=== PATIENT | female | born 1940 | race African-American/Black ===

== ENCOUNTER 2018-02-08 19:51 | Emergency (ER) | payer MEDICARE ==
[~2018-02-08] VITALS: Ht 157.5 cm; Wt 64.9 kg
[2018-02-08] MEDS ORDERED: LEVOTHYROXINE75 MCG ORAL (20:03)
[2018-02-08 20:05] VITALS: BP 142/59
[2018-02-08] MEDS ORDERED: Isovue-300 100ml vial INJ PRN (20:30)
--- NOTE | 2018-02-08 20:50 | Emergency Room Report ---
History of Present Illness General Chief Complaint: Nausea, Vomiting, and Diarrhea Source: Patient (ALMA DELIAGILBERTO Kolb) Present Illness HPI Patient is a 78-year-old female who is complaining of diffuse upper abdominal pain with associated belching and intermittent episodes of diarrhea for the last 48 hours. She attributed her symptoms to food she ate 2 days ago. No one else ate same food. Patient also states a history of breast cancer that is returned after remission 30 years ago. Patient states she had a recent PET scan showing a new tumor behind her "breast plate". (GILBERTO FLANNERY) Allergies: Coded Allergies: MORPHINE (Verified Allergy, Unknown, 02/08/18) Patient History Past Medical History: see triage record Past Surgical History: none Pertinent Family History: none Social History: Denies: smoking, alcohol use, drug use Last Menstrual Period: N/A (GILBERTO FLANNERY) Nursing Documentation-[facility] Hx Cancer: Yes - Breast cancer (GILBERTO FLANNERY) Review of Systems Constitutional: Denies: no symptoms, see HPI, chills, sweats, fever, malaise, weakness, other Eye: Denies: no symptoms, see HPI, eye pain, blurred vision, tearing, double vision, nose pain, nose congestion, acuity changes, discharge, other ENT: Denies: no symptoms, see HPI, ear pain, ear discharge, nose pain, nose congestion, throat pain, throat swelling, mouth pain, hearing loss, nasal discharge, other Respiratory: Denies: no symptoms, see HPI, cough, orthopnea, shortness of breath, stridor, wheezing, VASQUEZ, sputum, other Cardiovascular: Denies: no symptoms, see HPI, chest pain, edema, palpitations, syncope, PND, other Gastrointestinal: Reports: see HPI Genitourinary: Denies: no symptoms, see HPI, discharge, dysuria, frequency, hematuria, pain, retention, incontinence, urgency, vag bleed/dc, other Musculoskeletal: Denies: no symptoms, see HPI, back pain, gout, joint pain, joint swelling, muscle pain, muscle stiffness, other Skin: Denies: no symptoms, see HPI, rash, change in color, change in hair/nails , dryness, lesions, other Neurological: Denies: no symptoms, see HPI, headache, numbness, paresthesia, seizure, tingling, tremors, focal weakness, syncope, dizziness, other Allergic: Denies: no symptoms, see HPI, urticaria, hay fever, other (GILBERTO FLANNERY) Physical Exam Vital Signs Date Time Temp Pulse Resp B/P (MAP) Pulse Ox O2 Delivery O2 Flow Rate FiO2 02/08/18 19:55 98.8 90 16 168/89 95 Room Air 98.8 Sp02 EP Interpretation: reviewed, normal General Appearance: no apparent distress, alert, GCS 15, non-toxic Head: normocephalic, atraumatic Eyes: bilateral eye normal inspection, bilateral eye PERRL ENT: hearing grossly normal, normal pharynx, no angioedema, normal voice Neck: full range of motion, supple/symm/no masses Respiratory: chest non-tender, lungs clear, normal breath sounds, speaking full sentences Cardiovascular #1: regular rate, rhythm, no edema Cardiovascular #2: 2+ carotid (R), 2+ carotid (L), 2+ radial (R), 2+ radial (L) , 2+ dorsalis pedis (R), 2+ dorsalis pedis (L) Gastrointestinal: normal bowel sounds, non tender, soft, non-distended, no guarding, no rebound Rectal: deferred Genitourinary: normal inspection, no CVA tenderness Musculoskeletal: back normal, gait/station normal, normal range of motion, non- tender, calf tenderness Neurologic: alert, oriented x3, responsive, motor strength/tone normal, sensory intact, speech normal Psychiatric: judgement/insight normal, memory normal, mood/affect normal, no suicidal/homicidal ideation Reflexes: 3+ bicep (R), 3+ bicep (L), 3+ tricep (R), 3+ tricep (L), 3+ knee (R) , 3+ knee (L) Skin: normal color, no rash, warm/dry, well hydrated Lymphatic: no adenopathy (GILBERTO FLANNERY) Medical Decision Making Diagnostic Impression: Primary Impression: Nausea & vomiting Qualified Codes: R11.2 - Nausea with vomiting, unspecified ER Course Please see above note from Dr. Flannery. Signed out to me for review of CT and repeat evaluation. Patient post CT. See results below. Improved, but still with some nausea and belching. Zofran repeated and mylanta given with improvement. Patient stable for outpatient observation and treatment. (Cabrera Morales M.D.) CT/MRI/US Diagnostic Results CT/MRI/US Diagnostic Results : Imaging Test Ordered: abd pelvis Impression IMPRESSION: * Diffuse fecal contents of small bowel loops, which are not abnormally dilated. Findings may be related to slow transit, possibly a cause for pain. * Large colonic stool burden. Correlate for constipation. * Pancreatic ductal dilatation in the body and head. No ductal dilatation and pancreatic tail. Findings may be sequela of chronic pancreatitis in the appropriate setting. Additional etiologies not excluded. Recommend further evaluation with MRI/MRCP of the abdomen without and with intravenous contrast on a routine basis. * Low-attenuation subcentimeter lesions in the liver possibly simple cysts versus biliary hamartomas. * Multiple small low-attenuation lesions in the spleen, possibly cysts or hemangiomas. (Cabrera Morales M.D.) Last Vital Signs Date Time Temp Pulse Resp B/P (MAP) Pulse Ox O2 Delivery O2 Flow Rate FiO2 02/08/18 19:55 98.8 90 16 168/89 95 Room Air 98.8 (GILBERTO FLANNERY) Last Vital Signs Date Time Temp Pulse Resp B/P (MAP) Pulse Ox O2 Delivery O2 Flow Rate FiO2 02/09/18 00:46 98.8 69 18 138/59 100 Room Air 98.8 Status: improved (Cabrera oMrales M.D.) Disposition: HOME, SELF-CARE Condition: Improved Scripts Tramadol Hcl* (ULTRAM*) 50 Mg Tablet 50 MG ORAL Q6H PRN for For Pain, #6 TAB 0 Refills Prov: Cabrera Morales M.D. 02/09/18 Famotidine (PEPCID AC) 20 Mg Tablet 20 MG PO DAILY, #20 TAB Prov: Cabrera Morales M.D. 02/09/18 Ondansetron Odt* (ZOFRAN ODT*) 4 Mg Tab.rapdis 4 MG BC EVERY 8 HOURS, #6 TAB 0 Refills Prov: Cabrera Morales M.D. 02/09/18 GILBERTO FLANNERY Feb 08, 2018 20:50 Cabrera Morales M.D. Feb 09, 2018 00:10
[2018-02-08 21:03] LABS: BILIRUBIN, URINE 2+ (NEGATIVE); COLOR,URINE AMBER; GLUCOSE, URINE (UA) NEGATIVE (NEGATIVE); KETONES,URINE NEGATIVE (NEGATIVE); LEUKOCYTE ESTERASE ,URINE 1+ (NEGATIVE); NITRITE,URINE NEGATIVE (NEGATIVE); PH,URINE 5 (4.5-8.0); PROTEIN,URINE 1+ (NEGATIVE); UROBILINOGEN,URINE NORMAL MG/DL (0.0-1.0)
[2018-02-08 21:04] LABS: BASOPHILS % (AUTO) 0.8 % (0.0-2.0); EOSINOPHILS % (AUTO) 1.9 % (0.0-3.0); HEMATOCRIT 32.3 % (37.0-47.0); HEMOGLOBIN 9.7 G/DL (12.0-16.0); LYMPHOCYTES % (AUTO) 25.5 % (20.0-45.0); MEAN CORPUSCULAR VOLUME 71 FL (80-99); MONOCYTES % (AUTO) 8.3 % (1.0-10.0); NEUTROPHILS % (AUTO) 63.5 % (45.0-75.0); PLATELET COUNT 249 K/UL (150-450); RED BLOOD COUNT 4.53 M/UL (4.20-5.40); RED CELL DISTRIBUTION WIDTH 15.8 % (11.6-14.8); WHITE BLOOD COUNT 7.3 K/UL (4.8-10.8)
[2018-02-08 21:05] LABS: APPEARANCE,URINE SLIGHTLY CLOUDY
[2018-02-08 21:18] LABS: ANION GAP 6 mmol/L (5-15); BLOOD UREA NITROGEN 12 mg/dL (7-18); CALCIUM 9.3 MG/DL (8.5-10.1); CARBON DIOXIDE 27 MMOL/L (21-32); CHLORIDE 105 MMOL/L (98-107); POTASSIUM 3.5 MMOL/L (3.5-5.1); SODIUM 138 MMOL/L (136-145)
[2018-02-08 21:23] LABS: ALANINE AMINOTRANSFERASE 21 U/L (12-78); ALBUMIN 3.5 G/DL (3.4-5.0); ALBUMIN/GLOBULIN RATIO 0.7 (1.0-2.7); ALKALINE PHOSPHATASE 123 U/L (46-116); ASPARTATE AMINO TRANSFERASE 26 U/L (15-37); BILIRUBIN,TOTAL 0.3 MG/DL (0.2-1.0)
[2018-02-08 23:35] VITALS: BP 138/59
[2018-02-09] MEDS ORDERED: ONDANSETRON ODT4 MG BC (00:12)
[2018-02-09] MEDS ORDERED: PEPCID AC20 M2 PO (00:12)
[2018-02-09] MEDS ORDERED: TRAMADOL HCL50 MG ORAL (00:12)
[2018-02-09] MEDS ORDERED: Mylanta II UD 30ml ORAL ONE (00:15)
[2018-02-09 00:45] VITALS: BP 138/64
[2018-02-09 00:46] VITALS: BP 138/59
--- NOTE | 2018-02-09 09:41 | Diagnostic Imaging Report ---
Indication: Abdominal pain Technique: CT of the abdomen and pelvis utilizing automated exposure control with intravenous contrast. Venous scanning performed. Axial, sagittal and coronal reformats presented. CT dose: Total DLP 713.49 mGycm; CTDI vol 15.23 mGy Comparison: None Findings: Dependent atelectasis noted in the lung bases. Well-circumscribed low-attenuation subcentimeter lesions in the liver, largest in the posterior inferior right hepatic lobe too small to fully characterize but possibly simple hepatic cysts or biliary hamartomas. Liver contour is smooth. Gallbladder unremarkable. No biliary ductal dilatation. There is some small subcentimeter low-attenuation lesions in the spleen which may represent cysts or hemangiomas. Spleen is not enlarged. Adrenal glands unremarkable. There is mild pancreatic ductal dilatation the body and head without dilatation within the tail. This may represent sequela of chronic pancreatitis in the proper setting. Additional etiologies not excluded. Recommend further evaluation with MRI of the abdomen. Kidneys enhance symmetrically. There are bilateral extrarenal pelves. No hydronephrosis or urinary tract stones. Bladder is mildly distended but otherwise unremarkable. Uterus is atrophic. No free intraperitoneal air or fluid. No evidence of high-grade small bowel obstruction. There is fecal contents within some small bowel loops which could represent slow transit, possibly cause for patient's pain. Appendix not definitively visualized but there is no focal inflammatory stranding the right lower quadrant to suggest acute appendicitis. There is a large amount of colonic stool. Abdominal aorta normal in caliber. No pathologically enlarged lymphadenopathy appreciated. No acute osseous abnormality. IMPRESSION: * Diffuse fecal contents of small bowel loops, which are not abnormally dilated. Findings may be related to slow transit, possibly a cause for pain. * Large colonic stool burden. Correlate for constipation. * Pancreatic ductal dilatation in the body and head. No ductal dilatation and pancreatic tail. Findings may be sequela of chronic pancreatitis in the appropriate setting. Additional etiologies not excluded. Recommend further evaluation with MRI/MRCP of the abdomen without and with intravenous contrast on a routine basis. * Low-attenuation subcentimeter lesions in the liver possibly simple cysts versus biliary hamartomas. * Multiple small low-attenuation lesions in the spleen, possibly cysts or hemangiomas. This corresponds with the statrad preliminary report. The CT scanner at [facility] is accredited by the [employer] and the scans are performed using protocols designed to limit radiation exposure to as low as reasonably achievable to attain images of sufficient resolution adequate for diagnostic evaluation.
== END 2018-02-09 00:49 | disposition home or self-care (01) ==
LOC: EMR 21:04
DX: R11.2 Nausea with vomiting, unspecified (principal); Z88.6 Allergy status to analgesic agent; Z85.3 Personal history of malignant neoplasm of breast; K76.9 Liver disease, unspecified; D73.89 Other diseases of spleen; R10.9 Unspecified abdominal pain
CPT/HCPCS: 36415; 74177; 80053; 81003; 83690; 85025; 87086; 99284; J2405; Q9967

== ENCOUNTER 2019-06-09 14:36 | Emergency (ER) | payer BC, MEDICARE ==
[~2019-06-09] VITALS: Ht 160 cm; Wt 59.0 kg
[~2019-06-09 14:36] MED LIST: LEVOTHYROXINE75 MCG ORAL; ONDANSETRON ODT4 MG BC; PEPCID AC20 M2 PO; TRAMADOL HCL50 MG ORAL
--- NOTE | 2019-06-09 14:57 | Emergency Room Report ---
History of Present Illness General Chief Complaint: General Complaint Source: Patient, Medical Record, EMS Present Illness HPI Disclaimer: Please note that this report is being documented using DRAGON technology. This can lead to erroneous entry secondary to incorrect interpretation by the dictating instrument. 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 Patient does not know why she is brought to the emergency department today. She cannot recall any discussion about a tunneled catheter or PICC line but does state she has very bad veins. She has had a chronic cough without change in her symptoms. When brought in by EMS she had one episode of emesis and she currently denies abdominal pain. She stated she was nauseous earlier in the day. Denies any dysuria, hematuria, flank pain, chest pain, shortness of breath , sore throat, URI symptoms or other complaints at this time. Denies any recent diarrhea but states that she usually does have loose stools. PMH: Hearing loss, osteoporosis, hypertension, metastatic breast cancer, DVT/PE PSH: Reviewed in chart Allergies: Morphine Social Hx: Denies Allergies: Coded Allergies: MORPHINE (Verified Allergy, Unknown, 02/08/18) Nursing Documentation-PMH Hx Cancer: Yes - Breast cancer Review of Systems All Other Systems: negative except mentioned in HPI Physical Exam Vital Signs Date Time Temp Pulse Resp B/P (MAP) Pulse Ox O2 Delivery O2 Flow Rate FiO2 06/09/19 14:40 98.1 86 18 115/73 (87) 90 Nasal Cannula 2.0 General: Awake and alert, no acute distress, frail-appearing, fatigued HEENT: NC/AT. EOMI. Anicteric sclera. Hearing acuity grossly diminished bilaterally. Dry mucous membranes Cardiovascular: RRR. S1 and S2 normal. No murmur appreciated Resp: Normal work of breathing. No cough, wheezing or crackles appreciated Abdomen: Abdomen is soft, nondistended. Nontender. Ostomy in place without surrounding erythema, edema, no drainage around the device : Arrives with Flores catheter. Clear urine in bag. Skin: Intact. No abrasions, laceration or rash over the exposed skin MSK: Normal tone and bulk. Moving all extremities. No obvious deformity. Compression bandage in the left upper extremity. Neuro: Awake and alert. Mentating appropriately. Medical Decision Making Diagnostic Impression: Primary Impression: PICC (peripherally inserted central catheter) in place ER Course 79-year-old female with a history of breast cancer and DVT presents from [facility] for placement of a PICC versus tunneled catheter who had one episode of vomiting without abdominal pain on arrival. She is well-appearing, no acute distress and has a benign abdominal exam. Will obtain screening labs to check for dehydration and signs of systemic infection. We will also obtain an x-ray of the chest and of the abdomen given her emesis. Discussed with her physician who says a PICC line was placed 2 days ago however is in the wrong position and was pulled. We will replace the PICC Chest X-Ray Diagnostic Results Chest X-Ray Diagnostic Results : # of Views/Limited/Complete: 1 View Indication: Other - Cough EP Interpretation: Yes Interpretation: no consolidation, no pneumothorax, other - Atelectasis versus consolidation of the left lower lung base, surgical clips on the left breast consistent with prior surgeries Impression: Other - Atelectasis at the left lower lung base versus consolidation, surgical clips right breast Electronically Signed by: Electronically signed by Dr. Moe Gauthier Other X-Ray Diagnostic Results Other X-Ray Diagnostic Results : X-Ray ordered: Abdomen # of Views/Limited Vs Complete: 1 View Indication: Other - Vomiting EP Interpretation: Yes Interpretation: nonspecific bowel gas, no sbo Impression: No acute disease Electronically Signed by: Electronically signed by Dr. Moe Gauthier Reevaluation Time: 16:44 Last Vital Signs Date Time Temp Pulse Resp B/P (MAP) Pulse Ox O2 Delivery O2 Flow Rate FiO2 06/09/19 14:40 98.1 86 18 115/73 (87) 90 Nasal Cannula 2.0 Reevaluation Impression Successful placement of PICC line in the left upper extremity, Is working well. Discussed with her PMD who will follow up the atelectasis on chest x-ray though she has had a chronic cough for several months. Abdominal x-ray does not show any evidence of obstruction. Patient is well-appearing has had no further episodes of emesis. In discussion with her doctor he is advised to cancel labs and patient will be followed up by him tomorrow if any further symptoms persist. The patient has no complaints at this time and is resting comfortably with a benign physical exam. Will discharge back to [facility] facility to follow-up with her PMD tomorrow morning. Disposition: ASSISTED LIVING Condition: Stable Moe Gauthier MD Jun 09, 2019 14:57
--- NOTE | 2019-06-09 15:05 | NUR ---
ED Nurse Note: Patient arrived by EMS from [facility] to have her PICC line replaced. Patient AxO x 4, hard of hearing. Patient in no distress, bed in lowest position. VSS
[2019-06-09 15:10] VITALS: BP 125/73
[2019-06-09] MEDS ORDERED: Heparin1,000 units/500ml Premix(Conc:2 units/ml) IV ONE (15:30)
[2019-06-09] MEDS ORDERED: Lidocaine 1% Plain 30 ml INJ ONE (15:30)
--- NOTE | 2019-06-09 16:35 | Pre-Procedure Note/Attestation ---
Pre-Procedure Note/Attestation Complete Prior to Procedure Planned Procedure: left Procedure Narrative: PICC Indications for Procedure Pre-Operative Diagnosis: needs PICC; previous fell out Attestation I attest that I discussed the nature of the procedure; its benefits; risks and complications; and alternatives (and the risks and benefits of such alternatives ), prior to the procedure, with the patient (or the patient's legal truck sales representative). I attest that, if there was a reasonable possibility of needing a blood transfusion, the patient (or the patient's legal truck sales representative) was given the [facility] standardized written summary, pursuant to the Rudolph Ramesh Blood Safety Act ([place] Health and Safety Code # 1645, as amended). I attest that I re-evaluated the patient just prior to the surgery and that there has been no change in the patient's H&P, except as documented below: Alfredo Recinos MD Jun 09, 2019 16:35
--- NOTE | 2019-06-09 16:36 | Brief Operative Note ---
Immediate Post Operative Note Operative Note Pre-op Diagnosis: needs PICC; previous fell out Procedure: PICC Post-op Diagnosis: same as pre-op Surgeon: Gaudencio Boyd Anesthesia: local Specimen: none Complications: none Fluids: none Implant(s) used?: No Alfredo Boyd MD Jun 09, 2019 16:36
--- NOTE | 2019-06-09 16:45 | Diagnostic Imaging Report ---
Indication: Chest pain Technique: One view of the chest Comparison: none Findings: The heart size is upper limits normal. There is bilateral right greater than left interstitial congestion. There is a focal opacity in the right midlung periphery. There is retrocardiac consolidation. There may be a small left pleural effusion. Surgical clips project over the midline. There is an esophageal stent in place. There are right axillary surgical clips. Impression: Evidence of generalized interstitial congestion. Focal opacities in the right midlung and retrocardiac region could represent infiltrates. Possible left pleural effusion Evidence of prior right axillary node dissection. Evidence of prior esophageal stent and esophageal surgery.
--- NOTE | 2019-06-09 16:46 | Diagnostic Imaging Report ---
Indication: Abdominal pain Technique: Supine view of the abdomen Comparison: none Findings: There is a gastrojejunostomy. The bowel gas pattern is unremarkable. The bladder appears somewhat distended. Impression: No acute process Gastrojejunostomy Distended bladder
--- NOTE | 2019-06-09 17:01 | Diagnostic Imaging Report ---
Indications: Needs long-term IV access Technique: Ultrasound confirms patent compressible left brachial vein. Total sterile technique, including sterile probe cover and sterile gel, hat, mask, sterile gown, large sterile drape, and preparation with 2% chlorhexidine utilized. Local anesthesia with 1% lidocaine. Under real-time ultrasound guidance, puncture brachial vein using 21-gauge needle, documented and archived, passage 0.018 guidewire under direct fluoroscopy, which was used to determine appropriate catheter length, exchange for 4 Dutch peel-away sheath. 4 Dutch Bard dual-lumen power PICC cut to 43 cm. It was inserted through the peel-away sheath. Peel-away sheath and guidewire removed. Catheter fixed to the skin. Both catheter ports aspirated and flushed. Patient tolerated procedure well, without immediate complication. Digital radiograph documents satisfactory catheter tip position, at the cavoatrial junction. Total fluoroscopy time 64.7 seconds. Total dose area product [id number] [id number] Total number of images: 1 Impression: Successful placement of left arm PICC under sonographic and fluoroscopic guidance, as described above.
[2019-06-09 17:46] VITALS: BP 129/73
--- NOTE | 2019-06-09 18:13 | NUR ---
ED Nurse Note: telephone report given to KIMMY Wilburn Suprvisor from [facility]. VSS at this time.
[2019-06-09 19:24] VITALS: BP 127/74
--- NOTE | 2019-06-09 19:25 | NUR ---
ED Nurse Note: Patient resting in bed. VSS. 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
[2019-06-09 19:42] VITALS: BP 128/78
[2019-06-09] MEDS ORDERED: Dyna-Hex 2% Top Sol 2oz TOPIC SCH (20:00)
== END 2019-06-09 19:40 | disposition home or self-care (01) ==
LOC: EDBD 14:36 → EMR 15:16
DX: T82.42XA Displacement of vascular dialysis catheter, initial encounter (principal); C79.81 Secondary malignant neoplasm of breast; J98.11 Atelectasis; Z88.5 Allergy status to narcotic agent; Z86.718 Personal history of other venous thrombosis and embolism; Z96.0 Presence of urogenital implants
CPT/HCPCS: 36569; 71045; 74018; 76937; 99284; J1644; J2001